=== PATIENT | female | born 1935 | race Caucasian/White ===

== ENCOUNTER 2020-03-04 14:07 | Inpatient (IN) | payer MEDICAID ==
[~2020-03-04] VITALS: Ht 152.4 cm; Wt 56.2 kg
[2020-03-04 14:14] VITALS: Ht 152.4 cm; Wt 56.2 kg
[2020-03-04 14:49] LABS: UA SPECIFIC GRAVITY 1.025 (1.005-1.035); microscopic required? YES; urine erythrocyte 1+ (NEGATIVE)
[2020-03-04 14:54] LABS: BASOPHIL % 0.4 % (0-2); PLATELET COUNT 389 x10^3mcL (130-400); RED CELL DISTRIBUTION WIDTH 13.9 % (11.5-14.5)
[2020-03-04] MEDS ORDERED: MEMANTINE HCL10 MG PO (15:00)
[2020-03-04] MEDS ORDERED: ARICEPT10 MG PO (15:01)
[2020-03-04] MEDS ORDERED: MIRTAZAPINE30 M3 PO (15:05)
[2020-03-04 15:21] LABS: ALKALINE PHOSPHATASE 70 U/L (46-116); ALT/SGPT 13 U/L (14-59); AST/SGOT 28 U/L (15-37); BILIRUBIN TOTAL 0.5 mg/dL (0.20-1.00); CALCIUM 9.4 mg/dL (8.5-10.1); CARBON DIOXIDE 26.7 mmol/L (21-32); CHLORIDE SERUM 101 mmol/L (98-107); GLUCOSE SERUM 123 mg/dL (74-106); LIPASE 124 IU/L (73-393); POTASSIUM SERUM 4.1 mmol/L (3.5-5.1); SODIUM SERUM 139 mmol/L (136-145); TOTAL PROTEIN, SERUM 7.8 g/dL (6.4-8.2)
[2020-03-04 15:25] LABS: ALBUMIN 2.9 g/dL (3.4-5.0)
[2020-03-04 16:18] VITALS: BP 148/71
[2020-03-04 17:38] VITALS: BP 143/67
[2020-03-04 21:03] VITALS: BP 119/62
[2020-03-05 05:11] VITALS: BP 136/77
[2020-03-05 06:41] LABS: BASOPHIL % 0.6 % (0-2); PLATELET COUNT 397 x10^3mcL (130-400)
[2020-03-05 07:17] LABS: CALCIUM 9.1 mg/dL (8.5-10.1); CARBON DIOXIDE 24.7 mmol/L (21-32); CHLORIDE SERUM 104 mmol/L (98-107); CREATININE SERUM 0.7 mg/dL (0.6-1.0); GLUCOSE SERUM 74 mg/dL (74-106); POTASSIUM SERUM 3.8 mmol/L (3.5-5.1); SODIUM SERUM 141 mmol/L (136-145)
[2020-03-05 08:19] VITALS: BP 113/50
[2020-03-05 13:16] VITALS: BP 147/52
[2020-03-05 16:24] VITALS: BP 110/65
[2020-03-05 21:09] VITALS: BP 109/49
[2020-03-06 05:50] VITALS: BP 102/55
[2020-03-06 08:59] VITALS: BP 117/63
[2020-03-06 11:37] LABS: APPEARANCE FLUID HAZY; COLOR FLUID YELLOW; LYMPHOCYTE FLUID 49 %; MONOCYTE FLUID 26 %; RBC FLUID 142 /cumm; SOURCE FLUID ASCITES; WBC FLUID 121 /cumm
[2020-03-06 21:13] VITALS: BP 109/52
[2020-03-07 06:14] VITALS: BP 117/54
[2020-03-07 08:40] VITALS: BP 116/62
[2020-03-07 12:11] VITALS: BP 133/80
[2020-03-07 14:07] VITALS: BP 133/80
[2020-03-07 16:13] VITALS: BP 127/74
[2020-03-07 20:13] VITALS: BP 117/58
[2020-03-08 06:01] VITALS: BP 118/74
[2020-03-08 09:12] VITALS: BP 114/68
[2020-03-08 12:21] VITALS: BP 114/68
== END 2020-03-08 13:20 | disposition home health service (06) ==
LOC: ED 14:07 → MU 15:50 → DU 15:50 → MU 17:10
PROVIDERS: Emergency Medicine; Internal Medicine; ADMIT Internal Medicine; ATTEND Internal Medicine
PROC: 0W9G3ZZ Drainage of Peritoneal Cavity, Percutaneous Approach (ICD-10-PCS; principal; 2020-03-06)
DX: K74.60 Unspecified cirrhosis of liver (principal); R18.0 Malignant ascites; E43 Unspecified severe protein-calorie malnutrition; J18.9 Pneumonia, unspecified organism; E86.0 Dehydration; F03.90 Unspecified dementia, unspecified severity, without behavioral disturbance, psychotic disturbance, mood disturbance, and anxiety; C80.1 Malignant (primary) neoplasm, unspecified; N39.0 Urinary tract infection, site not specified; F32.9 Major depressive disorder, single episode, unspecified; R63.0 Anorexia; Z79.899 Other long term (current) drug therapy
CPT/HCPCS: 88344; 97112-GP; 97116-GP; 97530-GP; G0378; J1956; J7030; J7040; Q0092